=== PATIENT | female | born 2000 | race Caucasian/White ===

== ENCOUNTER 2021-04-19 16:48 | Emergency (ER) | payer BC ==
[~2021-04-19] VITALS: Ht 165.1 cm; Wt 59.1 kg
[2021-04-19 17:49] VITALS: BP 111/73; PULSE 83; TEMP 99
[2021-04-19] MEDS ORDERED: OMNICEF 300MG300 MG PO (19:19)
== END 2021-04-19 19:35 | disposition home or self-care (01) ==
LOC: COL.ER 16:48
DX: J01.90 Acute sinusitis, unspecified (principal); Z88.1 Allergy status to other antibiotic agents
CPT/HCPCS: J1885